=== PATIENT | female | born 1995 | race Caucasian/White ===

== ENCOUNTER 2022-11-23 17:50 | Emergency (ER) | payer SELFPAY ==
[~2022-11-23] VITALS: Ht 170.2 cm; Wt 60.0 kg
[2022-11-23 17:52] VITALS: O2SAT 96
[2022-11-23] MEDS ORDERED: MORPHINE SULFATE 4 MG/ML CPJ (NOT FOR IM USE) IV ONE (18:30)
[2022-11-23 19:08] VITALS: TEMP 98.7
[2022-11-23] MEDS: HYDROMORPHONE HCL/PF 2MG/ML CPJ IV ONE (19:26)
[2022-11-23 21:19] VITALS: BP 107/66; PULSE 82; RESP 12
== END 2022-11-23 21:20 | disposition home or self-care (01) ==
LOC: ER 18:38
DX: S52.021A Displaced fracture of olecranon process without intraarticular extension of right ulna, initial encounter for closed fracture (principal); E03.9 Hypothyroidism, unspecified; W18.39XA Other fall on same level, initial encounter; Y93.89 Activity, other specified; Y92.89 Other specified places as the place of occurrence of the external cause; Y99.8 Other external cause status
CPT/HCPCS: 99284; 96374; 29105; 71045; 73060; 73090; J1170; J2270